=== PATIENT | female | born 1985 | race Caucasian/White ===

== ENCOUNTER 2016-11-15 19:21 | Emergency (ER) | payer MEDICAID ==
[~2016-11-15] VITALS: Ht 170.2 cm; Wt 87.0 kg
[2016-11-15] MEDS ORDERED: ACETAMINOPHEN 325MG TABLET PO ONE (20:00)
[2016-11-15 22:53] VITALS: BP 120/78
== END 2016-11-15 22:55 | disposition home or self-care (01) ==
LOC: ER 22:08
DX: S52.202A Unspecified fracture of shaft of left ulna, initial encounter for closed fracture (principal); W01.0XXA Fall on same level from slipping, tripping and stumbling without subsequent striking against object, initial encounter; Y93.89 Activity, other specified; Y92.098 Other place in other non-institutional residence as the place of occurrence of the external cause
CPT/HCPCS: 29125; 73090; 73110; 73130; 81025; 99284; X7700; Z7610

== ENCOUNTER 2017-09-08 12:54 | Emergency (ER) | payer MEDICAID ==
[~2017-09-08] VITALS: Ht 170.2 cm; Wt 86.0 kg
[2017-09-08 15:01] LABS: CLARITY URINE CLEAR (CLEAR); COLOR URINE YELLOW (YELLOW); KETONES URINE 1+ (NEGATIVE); LEUKOCYTE ESTERASE URINE TRACE (NEGATIVE); NITRITE URINE NEGATIVE (NEGATIVE); OCCULT BLOOD URINE 2+ (NEGATIVE); PROTEIN URINE NEGATIVE (NEGATIVE); SPECIFIC GRAVITY URINE 1.016 (1.005-1.030)
[2017-09-08] MEDS ORDERED: SODIUM CHLORIDE 0.9% 1,000 ML IV ONE (15:29)
[2017-09-08] MEDS ORDERED: KETOROLAC 30MG/ML VIAL IV STA (15:29)
[2017-09-08 16:35] VITALS: BP 108/64
== END 2017-09-08 17:06 | disposition home or self-care (01) ==
LOC: ER 13:36
DX: J11.1 Influenza due to unidentified influenza virus with other respiratory manifestations (principal); N39.0 Urinary tract infection, site not specified
CPT/HCPCS: 81003; 81025; 87804; 96361; 96374; 99285; J1885; J7030; Z7610